=== PATIENT | female | born 1960 | race Caucasian/White ===

== ENCOUNTER 2016-07-11 05:17 | Day surgery (SDC) | payer OTHER ==
[~2016-07-11] VITALS: Ht 162.6 cm; Wt 64.4 kg
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
--- NOTE | ~2016-07-11 | S ---
[facility] [place] [address] [place] [address] SURGICAL PATH RPT PROCEDURE Name: SILVIA WU Room #: DEP [facility]..#: [id number] Admission: 07/11/16 Date of : 60 Discharge: 07/11/16 Report #: [id number] Path Case #: [id number] PATHOLOGY REPORT COLLECTION DATE: 07/11/2016 RECEIVED DATE: 07/11/2016 SUBMITTING PHYS: Dr. Sunita Britt OTHER PHYS: SPECIMEN(S) RECEIVED: A.Abdominal wound * * * * * * * * * * * * FINAL DIAGNOSIS: Abdominal wound, debridement: - Skin with marked acute and chronic inflammation as well as atrophic changes, history of nonhealing surgical wound. (IUV:all; d/t: 07/12/2016) PATHOLOGIST: Shanti Owens M.D. REPORT ELECTRONICALLY SIGNED BY: Shanti Owens M.D. DATE/TIME: 07/12/2016 15:51 * * * * * * * * * * * * GROSS PATHOLOGY: The specimen is received in formalin, labeled "Silvia Wu and abdominal wound." Received is a 5.0 x 2.2 x 0.8 cm irregular excision of possible skin. The possible epidermal surface is pink-granda, wrinkled, and grossly unremarkable. The resection margin is inked black and the specimen is sectioned to reveal a hemorrhagic, white-granda, and fibrous cut surface. No masses or lesions are grossly identified. Piece Dyeing Machine Tender sections are submitted in cassette A1. (TTL; 07/11/2016) CLINICAL HISTORY: Abdominal wall nonhealing surgical wound INITIAL CPT CODE(S): A; 16256 Professional services performed by [facility] at [facility] [address], [place] [address] Technical services performed by [facility] at [address] [place] [address]. [facility] [address] [place] [address] SURGICAL PATH RPT PROCEDURE Name: SILVIA WU Room #: [facility].#: [id number] Admission: 07/11/16 Date of : 60 Discharge: 07/11/16 Report #: [id number] Path Case #: [id number] [facility] [id number] [address] PHONE: [phone] DIRECTOR: Raudel Gil M.D. * * * END OF REPORT * * *
[~2016-07-11 05:17] MED LIST: ASMANEX0.135 G1 IH; ASMANEX0.135 G1 INH; B12INJ IM; BIOTIN5 MG PO; CENTRUM SILVER1 EAC4 PO; COMBIVENT INH; COMPAZINE10 M2 IV; DIPHENHIST50 MG PO; DUONEB 2.5-0.5 M3 ML INH; ENOXAPARIN40 MG/0.1 SUBQ; FENTANYL PA25 MCG/HR TRANSDERM; GAS RELIEF 8080 MG PO; HYDROCODONE-AP1 EAC6 PO; HYDROGEL TOP; HYDROXYZINE PAM25 M1 PO; KLOR-CON 1010 MEQ PO; LOPERAMIDE 2 MG2 M1 PO; MAGNESIUM OXID400 MG PO; MEROPENEM500 MG IV; NORVASC5 MG PO; PRILOSEC40 MG PO; PROBIOTIC1 EAC1 PO; REMERON15 M2 PO; SEROQUEL 50 MG50 MG PO; TEARS NATURALE1 EACH OPHTHALMIC; TRAMADOL 50 MG50 MG PO; TYLENOL325 MG PO; VANCOMYCIN500 MG/VIA IV; ZOLOFT50 MG PO
[2016-07-11 07:22] VITALS: BP 117/86
[2016-07-11 09:48] VITALS: BP 117/86
[2016-07-17] MEDS ORDERED: ENDOCET 5-3251 EACH PO (19:45)
[2016-07-17] MEDS ORDERED: LIDODERM 5%1 PATC1 TRANSDERM (19:48)
[2016-07-17] MEDS ORDERED: SENNA8.6 MG PO ×2 (19:49→19:50)
[2016-07-17] MEDS ORDERED: ONDANSETRON HCL4 M2 PO (19:52)
[2016-07-17] MEDS ORDERED: CYANOCOBAL1000 MCG/1 IM (19:54)
[2016-07-19] MEDS ORDERED: LEVAQUIN 500 M500 M2 PO (10:45)
== END 2016-07-11 10:50 | disposition home or self-care (01) ==
LOC: TBA 05:17 → OR 05:17
DX: T81.89XA Other complications of procedures, not elsewhere classified, initial encounter (principal); T81.4XXA Infection following a procedure, initial encounter; L92.9 Granulomatous disorder of the skin and subcutaneous tissue, unspecified; K43.0 Incisional hernia with obstruction, without gangrene; F17.220 Nicotine dependence, chewing tobacco, uncomplicated; G47.33 Obstructive sleep apnea (adult) (pediatric); F32.9 Major depressive disorder, single episode, unspecified; F41.9 Anxiety disorder, unspecified; G43.909 Migraine, unspecified, not intractable, without status migrainosus; J44.9 Chronic obstructive pulmonary disease, unspecified; F17.210 Nicotine dependence, cigarettes, uncomplicated; I10 Essential (primary) hypertension; Z90.49 Acquired absence of other specified parts of digestive tract; Z86.73 Personal history of transient ischemic attack (TIA), and cerebral infarction without residual deficits; Z90.710 Acquired absence of both cervix and uterus; Z98.890 Other specified postprocedural states
CPT/HCPCS: 50010; 50101; 50386; 50417; 51412; 56524; 56525; 62110; 62900; 64037; 70005